=== PATIENT | female | born 1995 | race Caucasian/White ===

== ENCOUNTER 2016-12-06 18:00 | Emergency (ER) | payer MEDICAID ==
[~2016-12-06] VITALS: Ht 162.6 cm; Wt 93.9 kg
[2016-12-06 18:05] VITALS: BP 130/70
[2016-12-06] MEDS ORDERED: diphenhdrAMINE HCL 25 MG CAP PO ONE (18:45)
[2016-12-06] MEDS ORDERED: PROMETHAZINE HCL 25 MG/ML 1ML IM ONE (18:45)
[2016-12-06] MEDS ORDERED: KETOROLAC TROMETH 60MG/2ML VIAL IM ONE (18:45)
[2016-12-06 19:11] LABS: Basophils # (auto) 0 uL; Basophils % (auto) 0.2 % (0.0-2.0); CONDITION Y; Eosinophils # (auto) 0.1 uL; Eosinophils % (auto) 0.9 % (0.0-7.0); Hemoglobin 13.2 g/dL (12.2-16.2); Lymphocytes # (auto) 2.4 uL; Lymphocytes % (auto) 28.9 % (10.0-50.0); Mean Corpuscular Hemoglobin 30.3 pg (28.0-32.0); Mean Corpuscular Hgb Conc. 34.8 g/dL (32.0-36.0); Monocytes # (auto) 0.6 uL; Monocytes % (auto) 6.7 % (0.0-12.0); Neutrophils # (auto) 5.3 uL; Neutrophils % (auto) 63.3 % (37.0-80.0); Platelet Count (auto) 278 10^3/uL (140-450); Red Cell Distribution Width 13.4 % (11.6-16.0); White Blood Cell 8.4 10^3/uL (4.4-10.8)
== END 2016-12-06 19:50 | disposition home or self-care (01) ==
LOC: ER 18:02
DX: G43.909 Migraine, unspecified, not intractable, without status migrainosus (principal); N93.9 Abnormal uterine and vaginal bleeding, unspecified; M54.9 Dorsalgia, unspecified
CPT/HCPCS: 36415; 85025; 96372; 99284; J1885; J2550